=== PATIENT | female | born 1955 | race Caucasian/White ===

== ENCOUNTER 2018-04-26 10:50 | Emergency (ER) | payer MEDICARE ==
[~2018-04-26] VITALS: Ht 149.9 cm; Wt 65.8 kg
[2018-04-26] MEDS ORDERED: ESOM20 (11:18)
[2018-04-26] MEDS ORDERED: ALBU90OI6 (11:18)
[2018-04-26] MEDS ORDERED: Advair Hfa 230-12 GM (11:18)
[2018-04-26] MEDS ORDERED: METF500C (11:18)
[2018-04-26] MEDS ORDERED: CETI5 (11:18)
[2018-04-26] MEDS ORDERED: LORA.5 (11:19)
[2018-04-26] MEDS ORDERED: POLY500 (11:19)
[2018-04-26] MEDS ORDERED: DULO30 (11:19)
[2018-04-26 12:03] LABS: Source, Urine Clean Catch
[2018-04-26 12:07] LABS: Blood, Urine 1+ (Neg); Glucose Qualitative, Urine Neg (Neg); Ketones, Urine 1+ (Neg); Leukocyte Esterase, Urine 3+ (Neg); Nitrite, Urine Neg (Neg); Protein, Urine 2+ (Neg); Urobilinogen, Urine 1+ (Normal)
[2018-04-26 12:19] LABS: Appearance, Urine Hazy (Clear)
[2018-04-26 12:20] LABS: Color, Urine Yellow (P-Yellow)
[2018-04-26 12:21] LABS: Bilirubin, Urine 1+ (Neg); White Blood Cells, Urine TNTC /hpf (0-5)
[2018-04-26 12:22] LABS: Bacteria Few /hpf; Red Blood Cells, Urine 0-2 /hpf (0-2); Squamous Epithelial Cells Few /hpf (Few); Transitional Epithelial Cells Mod /hpf (0-Rare)
[2018-04-26 12:23] LABS: Mucus Light (0-Heavy)
[2018-04-26] MEDS ORDERED: Pyridium100 MG PO (12:40)
[2018-04-26] MEDS ORDERED: CEPH500 PO (12:40)
== END 2018-04-26 13:26 | disposition home or self-care (01) ==
LOC: ER 10:50
PROVIDERS: Physician Assistant
DX: N39.0 Urinary tract infection, site not specified (principal); E11.9 Type 2 diabetes mellitus without complications; J44.9 Chronic obstructive pulmonary disease, unspecified; Z91.040 Latex allergy status; Z79.899 Other long term (current) drug therapy; Z79.84 Long term (current) use of oral hypoglycemic drugs; Z79.51 Long term (current) use of inhaled steroids; Z87.891 Personal history of nicotine dependence
CPT/HCPCS: 81001; 87086; 99283